=== PATIENT | female | born 1975 | race Hispanic/Latino ===

== ENCOUNTER 2017-02-15 16:28 | Emergency (ER) | payer OTHER ==
[~2017-02-15] VITALS: Ht 165.1 cm; Wt 54.5 kg
[~2017-02-15 16:28] MED LIST: IRON1TAB90 PO
[2017-02-15 16:30] VITALS: BP 157/99; PULSE 91; RESP 20; O2SAT 100
[2017-02-15 20:15] VITALS: BP 125/81; PULSE 80; RESP 18; O2SAT 100
--- NOTE | 2017-02-15 20:31 | ED.REPORT ---
HPI-Rash / Abscess Date of Service Feb 15, 2017 ED Provider: Jose Juan Mansfield MD Pt is an otherwise healthy 42 year old female who presents to the ED complaining of a rash on the right mandible onset 2 weeks ago. She c/o associated itching and increasing swelling. She denies extremity swelling and any other symptoms. Pt denies a history of surgeries including tubal ligation. Nursing Notes Stated Complaint: RASH Chief Complaint: Skin Rash/Abscess Nursing Notes Reviewed: Yes ([employer], [employer] not reconciled) Allergies: Coded Allergies: No Known Allergies (Verified Allergy, Unknown, 08/19/15) Scheduled Iron,Carbonyl/Ascorbic Acid (Iron 100-Vitamin C Tablet) 1 Each Tablet 1 EACH PO BID General Time Seen by MD: 20:28 Chief Complaint Rash Hx Obtained From: Patient Arrived By: Walk-in Onset Occurred: More than a week ago... (2 weeks) Symptom Duration: Since onset Severity: Current: No pain currently Severity: Maximum: No pain Recent Healthcare: No recent doctor visit, No recent hospitalization Similar Sx Previous: No Past Medical History Past Medical History Anemia ovarian cysts Past Surgical History "Bilateral tubal ligation reportedly at age [age]. This seems unlikely" Pt denies tubal ligation upon inquiry. Reports: Tubal ligation Family History Noncontributory Smoking History Never Smoker Social History Alcohol Use: Denies alcohol use Drug Use: Denies drug use Other Social History: Good social support, Local resident Ambulatory Status Independent Review of Systems + Facial swelling Constitutional: Denies: Fever Respiratory: Denies: Non-productive cough Musculoskeletal: Denies: Extremity swelling Skin: Reports Itching, Reports Rash Complete sys rev & neg: except as marked. Physical Exam Initial Vital Signs Vital Signs (First) Date Time Temp Pulse Resp B/P Pulse Ox O2 Delivery O2 Flow Rate FiO2 02/15/17 16:30 36.1 91 20 157/99 100 Room Air Initial VS: Reviewed, Vital signs normal Neck: Supple, Full range of motion Respiratory: Breath sounds normal, Clear to auscultation, No respiratory distress Cardiovascular: Regular rate & rhythm, Heart sounds normal, Intact distal pulses Abdomen / GI: Soft, Non-tender Extremities: Vascular intact, Neuro intact Neurologic: Alert, Oriented, Nonfocal Psychiatric: Mood/affect normal, Behavior normal General/Constitutional: Awake, Alert Skin: Warm, Dry, Intact Head / Eyes: Atraumatic 1.5 cm nonspecific dermatitis on the right mandible with no signs of cellulitis. No adenopathy. No signs of abscess. Re-Eval/Medical Decision Med Decision/Clinical Course This is a 42 healthy female who developed a 2sq cm area redness and itching along the right jaw bone. She has no prior history of other complaints, said no fevers chills or infectious symptoms. She has no other lesions. This been present over the past 2 weeks and itching is severe. On exam she has a small area of excoriation and nonspecific dermatitis. There is no signs of cellulitis or abscess. No other lesions, no adenopathy. I am not finding a dangerous etiology. Recommended some topical triamcinolone, given the small area involved. Routine precautions reviewed. Source of Hx: Old records Re-Evaluation/Progress : Time of Eval: 20:35 Re-Evaluation/Progress Note: Informed pt of plan for treatment and discharge. Pt understands and agrees with plan for treatment and discharge. F/U instructions and RTER warnings given. All questions addressed. Differential Diagnosis: Negative: AIDS/HIV, Abscess, Allergic reaction, Cellulitis, Drug reaction, Erythema multiforme, Gangrene, Hand, foot, mouth disease, Henoch-Schonlein purpura, Herpes zoster/simplex, Osteomyelitis, Perirectal abscess, Ravi mt spotted fever, Varicella Counseled Regarding: Diagnosis, Need for follow-up, When/why to return to ED Discharge & Departure Impression: Primary Impression: Dermatitis Disposition: Home Discharge Condition All VS Reviewed: Yes Condition: Stable Additional Instructions: 1. This is a non-specific dermatitis (skin inflammation), meaning there are a number of causes for this type of inflammation and the exact cause is unknown. 2. However, it does not appear infected. 3. Apply triamcinalone ointment twice a day and this should help resolve the itching and the rash. 4. Follow up with the residency clinic as needed. 1. se trata de scot dermatitis inespecfica (inflamacin de la piel), lo que significa un nmero de causas para rudy tipo de inflamacin y se desconoce la causa exacta. 2. sin embargo, no parece infectado. 3. Aplique triamcinolona pomada dos veces al da y esto deben ayudar a resolver el prurito y la erupcin. 4. seguimiento en la clnica residencia segn sea necesario. Referrals: [facility] Scribe Attestation Portions of this note were transcribed by Lilli Chairez. I, Dr. Mansfield personally performed the history, physical exam and medical decision-making; I reviewed and confirmed the accuracy of the information in the transcribed note. Signed by: Mary Adame, 02/15/17. copies to: [facility] Jose Juan Mansfield MD Feb 15, 2017 20:31 Lilli Art Feb 15, 2017 20:38
[2017-02-15 21:00] VITALS: BP 125/81; PULSE 80; RESP 18; O2SAT 100
== END 2017-02-15 21:01 | disposition home or self-care (01) ==
LOC: SED 16:28
DX: L30.9 Dermatitis, unspecified (principal)